=== PATIENT | male | born 1960 | race Hispanic/Latino ===

== ENCOUNTER 2017-09-21 08:21 | Day surgery (SDC) | payer OTHER ==
[2017-09-21] MEDS ORDERED: NA CHLORIDE 0.9% 1,000 ML ONE (08:33)
[2017-09-21 08:52] LABS: MPV 8.6 fL (7.6-11.3)
[2017-09-21 08:57] LABS: Protime INR 1.11
[2017-09-21] MEDS ORDERED: MIDAZOLAM HCL 2 MG/2 ML INJ ONE (09:43)
[2017-09-21] MEDS ORDERED: FENTANYL CITR 100 MCG/2 ML ONE (09:43)
[2017-09-21] MEDS ORDERED: FLUMAZENIL 0.1 MG/ML (5 mL VIAL) IV ONE (09:44)
[2017-09-21] MEDS ORDERED: NALOXONE 0.4 MG/ML VIAL ONE (09:44)
[2017-09-21 10:01] LABS: Platelet Estimate ADEQ
--- NOTE | 2017-09-21 10:59 | RAD REPORT ---
EXAM DESCRIPTION: US - Liver Biopsy Proceduree - 09/21/2017 10:14 am CLINICAL HISTORY: Elevated liver function tests. COMPARISON: Liver Only dated 07/21/2017; RP EXAM COMPLETE dated 05/12/2014 FINDINGS: Preoperative diagnosis: Elevated LFTs. Post operative diagnosis: Same. Conscious Sedation: 45 minutes IV conscious sedation utilizing fentanyl and midazolam. Fluoroscopy time: None Contrast used: None Estimated blood loss: Minimal Specimens:3 x 18 gauge cores The right upper quadrant was prepped and draped in the usual sterile fashion. 1% lidocaine was infilt rated into the subcutaneous tissues for local anesthesia. Real time ultrasound scanning of the right lobe of the liver demonstrated a suitable sonographic window. Under ultrasound guidance, using a 18-g auge, 6 cm long, 2 cm throw core biopsy gun, three specimens were obtained of this lesion and sent to pathology for evaluation. There were no complications. IMPRESSION: Successful ultrasound-guided non-focal liver biopsy. 45 minutes IV conscious sedation utilizing fentanyl and midazolam.
== END 2017-09-21 13:50 | disposition home or self-care (01) ==
LOC: DS 08:21
PROVIDERS: ATTEND Internal Medicine Gastroenterology
PROC: BF45ZZZ Ultrasonography of Liver (ICD-10-PCS; principal; 2017-09-21)
PROC: 0FB13ZX Excision of Right Lobe Liver, Percutaneous Approach, Diagnostic (ICD-10-PCS; 2017-09-21)
DX: B18.2 Chronic viral hepatitis C (principal); K74.60 Unspecified cirrhosis of liver; K76.0 Fatty (change of) liver, not elsewhere classified; R93.5 Abnormal findings on diagnostic imaging of other abdominal regions, including retroperitoneum; R94.5 Abnormal results of liver function studies
CPT/HCPCS: 36415; 47000; 85049; 85610; 85730; 88307; 88313; J2250; J2310; J3010; J7030